=== PATIENT | male | born 1990 ===

== ENCOUNTER 2017-08-25 13:09 | Inpatient (IN) ==
[2017-08-25] MEDS ORDERED: CLINDAMYCIN INJ 900 MG in PREMIX 1 EACH IV STA (13:32)
[2017-08-25] MEDS ORDERED: CLINDAMYCIN INJ 50 ML IV ONE (14:05)
[2017-08-25 14:10] LABS: Basophils # 0.1 10*3/uL (0.0-0.2); Basophils % 0.8 % (0.0-0.8); Eosinophils # 0.2 10*3/uL (0.0-0.87); Eosinophils % 2.2 % (0.00-10.9); Hematocrit 41.9 VOL% (42.0-52.0); Hemoglobin 14.6 GM/DL (14.0-18.0); Immature Granulocytes % 0.4 %; Immature Granulocytes Absolute 0.03 #; Lymphocytes # 1.8 10*3/uL (1.4-4.0); Lymphocytes % 24.8 % (21.2-54.2); Mean Corpuscular HGB Conc 34.8 GM/DL (32-36); Mean Corpuscular Hemoglobin 30 PG (27-34); Mean Corpuscular Volume 85.5 FL (87-102); Mean Platelet Volume 9.6 FL (9.6-12.0); Monocytes # 0.6 10*3/uL (0.11-0.8); Monocytes % 8.2 % (1.7-12.7); Neutrophils # 4.7 10*3/uL (1.4-7.4); Neutrophils % 63.6 % (38.7-73.9); Platelet Count 284 T/CUMM (130-400); Red Cell Distribution Width 13.2 % (9.3-17.3); White Blood Count 7.4 T/CUMM (4-12)
[2017-08-25 14:34] LABS: Albumin 4.2 G/DL (3.4-5.0); Bilirubin,Total 0.7 MG/DL (0.2-1.0); Osmolality,Calculated 283.3 MOS/KG (273-304); Potassium 4.5 MMOL/L (3.5-5.1); Total Protein 7.8 G/DL (6.4-8.3)
[2017-08-25] MEDS ORDERED: ACETAMINOPHEN 325 MG TABLET PO PRN (16:16)
[2017-08-25] MEDS ORDERED: ALUMINUM/MAGNES/SIMETH MAX STR 30 ML UDCUP PO PRN (16:16)
[2017-08-25] MEDS ORDERED: ONDANSETRON 4 MG/2 ML VIAL IV PRN (16:16)
[2017-08-25] MEDS ORDERED: HYDROmorphone 2 MG/1 ML VIAL IV PRN (16:16)
[2017-08-25] MEDS: CLINDAMYCIN INJ 600 MG in PREMIX 1 EACH IV SCH ×2 (17:56→23:21)
[2017-08-25] MEDS: DEXTROSE 5% NACL 0.45% 1,000 ML IV SCH (18:11)
[2017-08-25] MEDS: PIPERACILLIN/TAZOBACTAM 3,375 MG in SODIUM CHLORIDE 0.9% 100 ML IV SCH (19:20)
[2017-08-25] MEDS: SULFAMETHOX/TRIMETHOPRIM 800-160 MG TABLET PO SCH (21:10)
[2017-08-25] MEDS: DOCUSATE SODIUM 100 MG CAPSULE PO SCH (21:10)
[2017-08-26] MEDS: PIPERACILLIN/TAZOBACTAM 3,375 MG in SODIUM CHLORIDE 0.9% 100 ML IV SCH ×3 (03:27→20:55)
[2017-08-26 08:28] LABS: Sedimentation Rate-Westergren 23 MM/HR (0-15)
[2017-08-26] MEDS: PANTOPRAZOLE 40 MG TABLET PO SCH (09:00)
[2017-08-26] MEDS: DOCUSATE SODIUM 100 MG CAPSULE PO SCH ×2 (09:00→21:01)
[2017-08-26] MEDS: SULFAMETHOX/TRIMETHOPRIM 800-160 MG TABLET PO SCH ×2 (09:00→21:01)
[2017-08-26] MEDS ORDERED: ONDANSETRON 4 MG/2 ML VIAL IV PRN (09:37)
[2017-08-26] MEDS ORDERED: ONDANSETRON 4 MG/2 ML VIAL ONE (09:58)
[2017-08-26] MEDS ORDERED: MIDAZOLAM 2 MG/2 ML VIAL ONE (09:58)
[2017-08-26] MEDS ORDERED: fentaNYL 100 MCG/2 ML VIAL ONE (09:58)
[2017-08-26] MEDS ORDERED: SEVOFLURANE 1 UNIT/15 MINUTE INH ONE (09:58)
[2017-08-26] MEDS ORDERED: PROPOFOL 200 MG/20 ML VIAL IV ONE (09:58)
[2017-08-26] MEDS: CLINDAMYCIN INJ 600 MG in PREMIX 1 EACH IV SCH ×3 (10:42→19:28)
[2017-08-26] MEDS: DEXTROSE 5% NACL 0.45% 1,000 ML IV SCH ×2 (10:47→21:02)
[2017-08-26] MEDS: KETOROLAC 10 MG TABLET PO SCH ×3 (11:03→22:21)
[2017-08-26] MEDS ORDERED: CLINDAMYCIN INJ 900 MG in PREMIX 1 EACH IV SCH (15:41)
[2017-08-27] MEDS: CLINDAMYCIN INJ 600 MG in PREMIX 1 EACH IV SCH ×3 (01:50→16:39)
[2017-08-27] MEDS: PIPERACILLIN/TAZOBACTAM 3,375 MG in SODIUM CHLORIDE 0.9% 100 ML IV SCH ×3 (03:37→20:26)
[2017-08-27] MEDS: KETOROLAC 10 MG TABLET PO SCH ×4 (03:48→22:34)
[2017-08-27] MEDS: DEXTROSE 5% NACL 0.45% 1,000 ML IV SCH ×2 (03:48→14:34)
[2017-08-27 06:14] LABS: Basophils % 0.8 % (0.0-0.8); Eosinophils # 0.2 10*3/uL (0.0-0.87); Eosinophils % 4.3 % (0.00-10.9); Hematocrit 39.3 VOL% (42.0-52.0); Hemoglobin 13.7 GM/DL (14.0-18.0); Immature Granulocytes % 0.6 %; Immature Granulocytes Absolute 0.03 #; Lymphocytes # 1.8 10*3/uL (1.4-4.0); Lymphocytes % 34.7 % (21.2-54.2); Mean Corpuscular HGB Conc 34.9 GM/DL (32-36); Mean Corpuscular Hemoglobin 30 PG (27-34); Mean Corpuscular Volume 84.9 FL (87-102); Mean Platelet Volume 9.8 FL (9.6-12.0); Monocytes # 0.4 10*3/uL (0.11-0.8); Monocytes % 8.3 % (1.7-12.7); Neutrophils # 2.7 10*3/uL (1.4-7.4); Neutrophils % 51.3 % (38.7-73.9); Platelet Count 253 T/CUMM (130-400); Red Blood Count 4.63 MC/CUMM (3.8-5.5); Red Cell Distribution Width 12.9 % (9.3-17.3); White Blood Count 5.3 T/CUMM (4-12)
[2017-08-27 06:44] LABS: Calcium 8.2 MG/DL (8.5-10.1); Osmolality,Calculated 283.1 MOS/KG (273-304)
[2017-08-27] MEDS: ENOXAPARIN 40 MG/0.4 ML SYRINGE SUBCUT SCH (07:47)
[2017-08-27] MEDS: PANTOPRAZOLE 40 MG TABLET PO SCH (08:47)
[2017-08-27] MEDS: SULFAMETHOX/TRIMETHOPRIM 800-160 MG TABLET PO SCH ×2 (08:49→20:28)
[2017-08-27] MEDS: DOCUSATE SODIUM 100 MG CAPSULE PO SCH ×2 (08:49→20:28)
[2017-08-27] MEDS: BACITRACIN OINT 0.9 GM PACK TOP SCH (18:00)
[2017-08-27] MEDS: SODIUM HYPOCHLORITE 0.25% IRRIG 473 ML BOTTLE TOP SCH (18:00)
[2017-08-27] MEDS ORDERED: SKIN HEALING OINT (AQUAPHOR) 50 GM TUBE TOP PRN (18:04)
[2017-08-28] MEDS: CLINDAMYCIN INJ 600 MG in PREMIX 1 EACH IV SCH ×4 (00:37→22:45)
[2017-08-28] MEDS: PIPERACILLIN/TAZOBACTAM 3,375 MG in SODIUM CHLORIDE 0.9% 100 ML IV SCH ×3 (03:24→19:52)
[2017-08-28] MEDS: KETOROLAC 10 MG TABLET PO SCH ×4 (03:25→22:45)
[2017-08-28] MEDS: PANTOPRAZOLE 40 MG TABLET PO SCH (08:48)
[2017-08-28] MEDS: SULFAMETHOX/TRIMETHOPRIM 800-160 MG TABLET PO SCH ×2 (08:48→20:49)
[2017-08-28] MEDS: DOCUSATE SODIUM 100 MG CAPSULE PO SCH ×2 (08:48→20:49)
[2017-08-28] MEDS: ENOXAPARIN 40 MG/0.4 ML SYRINGE SUBCUT SCH (08:51)
[2017-08-28] MEDS: DEXTROSE 5% NACL 0.45% 1,000 ML IV SCH (11:29)
[2017-08-28] MEDS: BACITRACIN OINT 0.9 GM PACK TOP SCH (14:20)
[2017-08-28] MEDS: SODIUM HYPOCHLORITE 0.25% IRRIG 473 ML BOTTLE TOP SCH (14:20)
[2017-08-29] MEDS: DEXTROSE 5% NACL 0.45% 1,000 ML IV SCH (00:15)
[2017-08-29] MEDS: CLINDAMYCIN INJ 600 MG in PREMIX 1 EACH IV SCH ×2 (03:12→09:32)
[2017-08-29] MEDS: KETOROLAC 10 MG TABLET PO SCH (03:12)
[2017-08-29] MEDS: PIPERACILLIN/TAZOBACTAM 3,375 MG in SODIUM CHLORIDE 0.9% 100 ML IV SCH ×2 (04:05→13:19)
[2017-08-29] MEDS: PANTOPRAZOLE 40 MG TABLET PO SCH (08:39)
[2017-08-29] MEDS: DOCUSATE SODIUM 100 MG CAPSULE PO SCH (08:39)
[2017-08-29] MEDS: SULFAMETHOX/TRIMETHOPRIM 800-160 MG TABLET PO SCH (08:39)
[2017-08-29] MEDS: ENOXAPARIN 40 MG/0.4 ML SYRINGE SUBCUT SCH (08:39)
[2017-08-29 13:17] VITALS: BP 106/54
[2017-08-29] MEDS: BACITRACIN OINT 0.9 GM PACK TOP SCH (13:18)
[2017-08-29] MEDS: SODIUM HYPOCHLORITE 0.25% IRRIG 473 ML BOTTLE TOP SCH (13:19)
== END 2017-08-29 13:40 | disposition home or self-care (01) | DRG 571 ==
LOC: EDBD → EDUNIT# → N.ED 13:09 → N.EDINP 16:51 → N.3E 17:46
PROVIDERS: ADMIT Specialist; ATTEND Specialist

== ENCOUNTER 2020-11-04 10:07 | Observation (INO) ==
[2020-11-04] MEDS ORDERED: AMPICILLIN/SULBACTAM 3,000 MG in SODIUM CHLORIDE 0.9% 100 ML IV STA (10:45)
[2020-11-04] MEDS ORDERED: HYDROmorphone 2 MG/1 ML VIAL IV STA (10:45)
[2020-11-04] MEDS ORDERED: ONDANSETRON 4 MG/2 ML VIAL IV STA (10:45)
[2020-11-04] MEDS ORDERED: cefOXitin 2,000 MG in SYRINGE 1 EACH IV ONE (11:33)
[2020-11-04] MEDS ORDERED: LIDOCAINE 1%/EPI INJ 20 ML VIAL ONE ×2 (12:00→12:26)
[2020-11-04] MEDS ORDERED: TISSUE ADHESIVE 1 EACH APPLICATOR TOP ONE ×2 (12:00→12:26)
[2020-11-04] MEDS ORDERED: BUPIVACAINE MPF 0.25% 30 ML VIAL ONE ×2 (12:00→12:26)
[2020-11-04] MEDS ORDERED: ONDANSETRON 4 MG/2 ML VIAL ONE (12:19)
[2020-11-04] MEDS ORDERED: MIDAZOLAM 2 MG/2 ML VIAL ONE (12:19)
[2020-11-04] MEDS ORDERED: ROCURONIUM 50 MG/5 ML VIAL IV ONE (12:19)
[2020-11-04] MEDS ORDERED: fentaNYL 100 MCG/2 ML VIAL ONE ×2 (12:19→13:45)
[2020-11-04] MEDS ORDERED: SEVOFLURANE 1 UNIT/15 MINUTE INH ONE ×2 (12:19→14:26)
[2020-11-04] MEDS ORDERED: PHENYLEPHRINE 1 MG/10 ML SYRINGE IV ONE (12:19)
[2020-11-04] MEDS ORDERED: SUCCINYLCHOLINE 200 MG/10 ML VIAL ONE (12:19)
[2020-11-04] MEDS ORDERED: propofoL 200 MG/20 ML VIAL IV ONE (12:19)
[2020-11-04] MEDS ORDERED: LIDOCAINE 2% 5 ML VIAL ONE (12:19)
[2020-11-04] MEDS: LACTATED RINGERS 1,000 ML IV SCH ×2 (12:50→14:01)
[2020-11-04] MEDS ORDERED: SODIUM CHLORIDE 0.9% 100 ML IV ONE (13:08)
[2020-11-04] MEDS ORDERED: LACTATED RINGERS 1,000 ML IV ONE ×2 (13:08→13:47)
[2020-11-04] MEDS ORDERED: ACETAMINOPHEN 1,000 MG/100 ML VIAL IV ONE (13:11)
[2020-11-04] MEDS ORDERED: MORPHINE 4 MG/1 ML VIAL IV PRN (14:29)
[2020-11-04] MEDS ORDERED: ONDANSETRON 4 MG/2 ML VIAL IV PRN ×2 (14:29→14:47)
[2020-11-04] MEDS ORDERED: HYDROmorphone 2 MG/1 ML VIAL IV PRN (14:47)
[2020-11-04 15:06] LABS: Hematocrit 38.9 VOL% (42.0-52.0); Hemoglobin 13.3 GM/DL (14.0-18.0)
[2020-11-04 23:17] LABS: Hematocrit 38.4 VOL% (42.0-52.0); Hemoglobin 13.6 GM/DL (14.0-18.0)
[2020-11-05 07:22] LABS: Hemoglobin 13.9 GM/DL (14.0-18.0)
[2020-11-05] MEDS: cefOXitin 1,000 MG in SODIUM CHLORIDE 0.9% 100 ML IV SCH ×3 (11:59→23:01)
[2020-11-06] MEDS: cefOXitin 1,000 MG in SODIUM CHLORIDE 0.9% 100 ML IV SCH (05:05)
[2020-11-06] MEDS ORDERED: CIPROFLOXACIN 500 MG TABLET PO SCH (10:00)
[2020-11-06 12:03] VITALS: BP 125/63
== END 2020-11-06 13:41 | disposition home or self-care (01) ==
LOC: N.3E 10:07 → N.ED 10:07 → N.3E 12:42
PROVIDERS: ADMIT Surgery; ATTEND Surgery
PROC: LAPCHOL (2020-11-04 13:50)